=== PATIENT | female | born 1950 | race Hispanic/Latino ===

== ENCOUNTER 2022-07-09 14:25 | Emergency (ER) | payer MEDICARE ==
[~2022-07-09] VITALS: Ht 152.4 cm; Wt 65.8 kg
[2022-07-09] MEDS ORDERED: SODIUM CHLORIDE 0.9% 1000ML 1,000 ML IV STA (15:08)
[2022-07-09] MEDS ORDERED: ONDANSETRON HCL INJ 2MG/ML 2ML 2 MG/ML VIAL IV STA ×2 (15:08→19:22)
[2022-07-09] MEDS ORDERED: DICYCLOMINE HCL 20 MG/2 ML VIAL IM ONE (15:15)
[2022-07-09 15:38] LABS: BASOPHILS % 0.1 % (0.0-1.0); HEMATOCRIT 38.3 % (34.2-44.1); HEMOGLOBIN 13.1 g/dL (12.0-16.0); LYMPHOCYTES # (AUTO) 0.8 (1.0-3.2); MEAN CORPUSCULAR HEMOGLOBIN 29.7 pg (28-32); MEAN CORPUSCULAR HGB CONC 34.2 g/dL (31-35); MEAN CORPUSCULAR VOLUME 86.8 fL (81-99); MONOCYTES # (AUTO) 0.6 (0.2-0.8); NEUTROPHILS # (AUTO) 9.7 (2.1-6.9); NEUTROPHILS % 87.5 % (38.7-80.0); PLATELET COUNT 329 x10e3/uL (140-360); RED BLOOD COUNT 4.41 x10e6/uL (3.6-5.1)
[2022-07-09 15:44] LABS: INR 0.98; PROTHROMBIN TIME 13.2 seconds (11.9-14.5)
[2022-07-09 15:45] LABS: PARTIAL THROMBOPLASTIN TIME 29.1 seconds (23.8-35.5)
[2022-07-09 15:54] LABS: ALANINE AMINOTRANSFERASE 22 IU/L (0-55); ALBUMIN 3.8 g/dL (3.5-5.0); ALBUMIN/GLOBULIN RATIO 0.9 (0.8-2.0); ALKALINE PHOSPHATASE 51 IU/L (40-150); ANION GAP 16.6 mmol/L (8-16); BLOOD UREA NITROGEN 10 mg/dL (7-26); BUN/CREATININE RATIO 13 (6-25); CALCIUM 9.1 mg/dL (8.4-10.2); CARBON DIOXIDE 23 mmol/L (22-29); CHLORIDE 95 mmol/L (98-107); CREATINE KINASE 291 IU/L (29-168); CREATININE, SERUM 0.79 mg/dL (0.57-1.11); GLUCOSE 116 mg/dL (74-118); LIPASE 23 U/L (8-78); POTASSIUM 3.6 mmol/L (3.5-5.1); SODIUM 131 mmol/L (136-145)
[2022-07-09] MEDS ORDERED: IOPAMIDOL 370 MG/ML 100 ML INFUS..BTL INJ ONE (16:28)
[2022-07-09] MEDS ORDERED: METRONIDAZOLE500 MG PO (19:06)
[2022-07-09] MEDS ORDERED: ONDANSETRON ODT4 MG PO (19:06)
[2022-07-09] MEDS ORDERED: DICYCLOMINE HCL20 MG PO (19:06)
[2022-07-09] MEDS ORDERED: CEFDINIR300 MG PO (19:06)
[2022-07-09 19:07] LABS: CLARITY,URINE SL CLOUDY (CLEAR); COLOR,URINE YELLOW (YELLOW); KETONES,URINE 1+ (NEGATIVE); LEUKOCYTE ESTERASE ,URINE NEGATIVE (NEGATIVE); NITRITE,URINE NEGATIVE (NEGATIVE); PROTEIN,URINE DIPSTICK NEGATIVE (NEGATIVE); URINE UROBILINOGEN 0.2 mg/dL (0.2 - 1)
[2022-07-09 19:20] LABS: BACTERIA,URINE MODERATE /HPF; EPITHELIAL CELLS,URINE MODERATE /LPF; WBC,URINE (MAN) 0-5 /HPF (0-5)
[2022-07-09] MEDS ORDERED: KETOROLAC TROMETHAMINE 30 MG/ML VIAL IV STA (19:22)
[2022-07-09] MEDS ORDERED: Morphine 4mg INJECTION 4 MG/ML INJ IV STA (19:22)
[2022-07-09] MEDS ORDERED: SODIUM CHLORIDE 0.9% 500ML 500 ML IV ONE (19:30)
[2022-07-09] MEDS ORDERED: ACETAMINOPHEN 325 MG TAB PO ONE (19:30)
[2022-07-09] MEDS ORDERED: KETOROLAC TROMETHAMINE 30 MG/ML VIAL ONE (19:43)
[2022-07-09] MEDS ORDERED: ONDANSETRON HCL INJ 2MG/ML 2ML 2 MG/ML VIAL ONE (19:43)
[2022-07-09] MEDS ORDERED: Morphine 2mg Syringe 2 MG/ML SYR ONE (19:43)
[2022-07-09] MEDS ORDERED: ACETAMINOPHEN 325 MG TAB ONE (19:44)
[2022-07-09 20:50] VITALS: BP 109/58
== END 2022-07-09 20:59 | disposition home or self-care (01) ==
LOC: ER 14:47
DX: R50.9 Fever, unspecified (principal); U07.1 COVID-19; K57.32 Diverticulitis of large intestine without perforation or abscess without bleeding; R10.30 Lower abdominal pain, unspecified; R11.2 Nausea with vomiting, unspecified; K76.89 Other specified diseases of liver; N28.1 Cyst of kidney, acquired; K44.9 Diaphragmatic hernia without obstruction or gangrene
CPT/HCPCS: 0223U; 36415; 74177; 80053; 81001; 82550; 82553; 83690; 83735; 84484; 85025; 85610; 85730; 87086; 99284; C9113; J0500; J1885; J2270; J2405; J7030; J7040; Q9967

== ENCOUNTER 2022-07-13 10:05 | Inpatient (IN) | payer MEDICARE ==
[~2022-07-13] VITALS: Ht 152.4 cm; Wt 65.8 kg
[~2022-07-13 10:05] MED LIST: CEFDINIR300 MG PO; DICYCLOMINE HCL20 MG PO; METRONIDAZOLE500 MG PO; ONDANSETRON ODT4 MG PO
[2022-07-13] MEDS ORDERED: Morphine 4mg INJECTION 4 MG/ML INJ IV STA (10:21)
[2022-07-13] MEDS ORDERED: SODIUM CHLORIDE 0.9% 1000ML 1,000 ML IV STA (10:21)
[2022-07-13] MEDS ORDERED: ONDANSETRON HCL INJ 2MG/ML 2ML 2 MG/ML VIAL IV STA (10:21)
[2022-07-13 10:56] LABS: BASOPHILS % 0.1 % (0.0-1.0); EOSINOPHILS % 0.1 % (0.0-6.0); HEMATOCRIT 36.8 % (34.2-44.1); HEMOGLOBIN 12.3 g/dL (12.0-16.0); LYMPHOCYTES # (AUTO) 0.6 (1.0-3.2); LYMPHOCYTES % 8.1 % (18.0-39.1); MEAN CORPUSCULAR HEMOGLOBIN 29.3 pg (28-32); MEAN CORPUSCULAR HGB CONC 33.4 g/dL (31-35); MEAN CORPUSCULAR VOLUME 87.6 fL (81-99); MONOCYTES # (AUTO) 0.5 (0.2-0.8); MONOCYTES % 5.8 % (4.4-11.3); NEUTROPHILS # (AUTO) 6.6 (2.1-6.9); NEUTROPHILS % 85.3 % (38.7-80.0); PLATELET COUNT 425 x10e3/uL (140-360); RED CELL DISTRIBUTION WIDTH 13.2 % (11.7-14.4)
[2022-07-13] MEDS: METRONIDAZOLE 500MG/NS 100ML 100 ML IV SCH ×3 (11:09→22:03)
[2022-07-13 11:17] LABS: ALANINE AMINOTRANSFERASE 18 IU/L (0-55); ALBUMIN 3.1 g/dL (3.5-5.0); ALBUMIN/GLOBULIN RATIO 0.8 (0.8-2.0); ALKALINE PHOSPHATASE 53 IU/L (40-150); ANION GAP 14.9 mmol/L (8-16); BLOOD UREA NITROGEN 14 mg/dL (7-26); BUN/CREATININE RATIO 19 (6-25); CALCIUM 8.6 mg/dL (8.4-10.2); CARBON DIOXIDE 24 mmol/L (22-29); CHLORIDE 101 mmol/L (98-107); CREATINE KINASE 52 IU/L (29-168); CREATININE, SERUM 0.75 mg/dL (0.57-1.11); GLUCOSE 112 mg/dL (74-118); LIPASE 24 U/L (8-78); MAGNESIUM 2.2 MG/DL (1.3-2.1); SODIUM 137 mmol/L (136-145)
[2022-07-13 11:25] LABS: INR 1.05; PROTHROMBIN TIME 14.2 seconds (11.9-14.5)
[2022-07-13 11:26] LABS: PARTIAL THROMBOPLASTIN TIME 32.7 seconds (23.8-35.5)
[2022-07-13 11:31] LABS: POTASSIUM 2.9 mmol/L (3.5-5.1)
[2022-07-13] MEDS ORDERED: Morphine 4mg INJECTION 4 MG/ML INJ IV PRN (11:45)
[2022-07-13] MEDS ORDERED: ONDANSETRON HCL INJ 2MG/ML 2ML 2 MG/ML VIAL IV PRN (11:45)
[2022-07-13] MEDS ORDERED: KCL 20MEQ/.9 SOD CHL 1,000 ML IV ONE (12:00)
[2022-07-13 12:50] LABS: BACTERIA,URINE FEW /HPF; CLARITY,URINE CLEAR (CLEAR); COLOR,URINE YELLOW (YELLOW); EPITHELIAL CELLS,URINE MODERATE /LPF; KETONES,URINE 2+ (NEGATIVE); LEUKOCYTE ESTERASE ,URINE NEGATIVE (NEGATIVE); NITRITE,URINE NEGATIVE (NEGATIVE); PROTEIN,URINE DIPSTICK NEGATIVE (NEGATIVE); RBC,URINE 0-5 /HPF (0-5); URINE UROBILINOGEN 0.2 mg/dL (0.2 - 1)
[2022-07-13] MEDS: POTASSIUM CHLORIDE 10MEQ/100ML 100 ML IV SCH ×3 (13:25→15:26)
[2022-07-13 14:38] VITALS: BP 144/62
[2022-07-13] MEDS ORDERED: ALBUTEROL/IPRATROPIUM 3 ML NEB NEB PRN (15:00)
[2022-07-13] MEDS ORDERED: ACETAMINOPHEN 325 MG TAB PO PRN (15:00)
[2022-07-13] MEDS ORDERED: DOCUSATE SODIUM 100 MG CAP PO PRN (15:00)
[2022-07-13] MEDS ORDERED: POTASSIUM CHLORIDE 20 MEQ TAB CR PO PRN (15:00)
[2022-07-13] MEDS ORDERED: BENZONATATE 100 MG CAP PO PRN (15:00)
[2022-07-13] MEDS ORDERED: MELATONIN 5 MG TABLET PO PRN (15:00)
[2022-07-13] MEDS ORDERED: HYDRALAZINE HCL 20 MG/ML VIAL IV PRN (15:00)
[2022-07-13] MEDS ORDERED: DEXTROSE 50% SYRINGE 50 ML IV PRN (15:00)
[2022-07-13] MEDS ORDERED: DIPHENHYDRAMINE HCL 25 MG CAP PO PRN (15:00)
[2022-07-13] MEDS ORDERED: D5NS/KCL 20MEQ 1,000 ML IV SCH (15:00)
[2022-07-13] MEDS ORDERED: LIDOCAINE 4% PATCH TP PRN (15:00)
[2022-07-13] MEDS ORDERED: SIMETHICONE 80 MG CHEW PO PRN (15:00)
[2022-07-13 15:01] VITALS: BP 144/62
[2022-07-13] MEDS ORDERED: IPRATROPIUM BROMIDE 0.02% 2.5 ML NEB NEB PRN (15:15)
[2022-07-13] MEDS ORDERED: ALBUTEROL SULF 0.083% NEB SOLN 3 ML NEB NEB PRN (15:15)
[2022-07-13] MEDS ORDERED: SODIUM CHLORIDE 0.9% 1000ML 1,000 ML ONE (15:35)
[2022-07-13 16:00] VITALS: BP 135/63
[2022-07-13] MEDS: ENOXAPARIN SOD INJ 40 MG/0.4 ML SYR SC SCH (17:18)
[2022-07-13] MEDS ORDERED: POTASSIUM CHLORIDE 10MEQ/100ML 100 ML IV SCH (17:20)
[2022-07-13] MEDS ORDERED: IOPAMIDOL 370 MG/ML 100 ML INFUS..BTL INJ ONE (17:31)
[2022-07-13 20:38] VITALS: BP 124/66
[2022-07-13 21:00] VITALS: BP 124/66
[2022-07-13] MEDS: D5NS/KCL 20MEQ 1,000 ML IV SCH (22:02)
[2022-07-13] MEDS: Morphine 2mg Syringe 2 MG/ML SYR IV PRN (22:04)
[2022-07-13] MEDS: ONDANSETRON HCL INJ 2MG/ML 2ML 2 MG/ML VIAL IV PRN (22:05)
[2022-07-13 23:47] VITALS: BP 136/60
[2022-07-14] VITALS (7 sets, daily range): BP systolic 117–133; BP diastolic 58–78
[2022-07-14 05:46] LABS: BASOPHILS % 0.2 % (0.0-1.0); HEMATOCRIT 32.7 % (34.2-44.1); HEMOGLOBIN 10.8 g/dL (12.0-16.0); LYMPHOCYTES # (AUTO) 1.1 (1.0-3.2); LYMPHOCYTES % 7.7 % (18.0-39.1); MEAN CORPUSCULAR HEMOGLOBIN 29.3 pg (28-32); MEAN CORPUSCULAR VOLUME 88.6 fL (81-99); MONOCYTES # (AUTO) 1.2 (0.2-0.8); MONOCYTES % 7.9 % (4.4-11.3); NEUTROPHILS # (AUTO) 12.1 (2.1-6.9); NEUTROPHILS % 83.2 % (38.7-80.0); PLATELET COUNT 446 x10e3/uL (140-360); RED BLOOD COUNT 3.69 x10e6/uL (3.6-5.1); RED CELL DISTRIBUTION WIDTH 13.5 % (11.7-14.4)
[2022-07-14] MEDS: D5NS/KCL 20MEQ 1,000 ML IV SCH ×2 (05:57→17:24)
[2022-07-14] MEDS: METRONIDAZOLE 500MG/NS 100ML 100 ML IV SCH ×3 (05:59→16:15)
[2022-07-14 06:22] LABS: ALBUMIN 2.1 g/dL (3.5-5.0); ALBUMIN/GLOBULIN RATIO 0.6 (0.8-2.0); ANION GAP 12.1 mmol/L (8-16); CREATININE, SERUM 0.62 mg/dL (0.57-1.11); POTASSIUM 3.1 mmol/L (3.5-5.1)
[2022-07-14 06:23] LABS: CHOL/HDL RATIO 3.3 (3.0-3.6); MAGNESIUM 2.1 MG/DL (1.3-2.1)
[2022-07-14 06:32] LABS: THYROID STIMULATING HORMONE 1.406 uIU/mL (0.350-4.940)
[2022-07-14] MEDS: PANTOPRAZOLE SOD 40 MG TABEC PO SCH (07:30)
[2022-07-14] MEDS: Morphine 2mg Syringe 2 MG/ML SYR IV PRN ×4 (08:22→23:29)
[2022-07-14] MEDS ORDERED: SODIUM CHLORIDE 0.9% 500ML 500 ML ONE (11:29)
[2022-07-14] MEDS: POTASSIUM CHLORIDE 20MEQ/100ML 100 ML IV SCH ×3 (11:50→17:14)
[2022-07-14] MEDS ORDERED: POTASSIUM PHOSPHATE 15 MM in SODIUM CHLORIDE 0.9% 250ML 250 ML IV ONE (15:30)
[2022-07-14] MEDS: ENOXAPARIN SOD INJ 40 MG/0.4 ML SYR SC SCH (16:16)
[2022-07-14] MEDS ORDERED: SODIUM CHLORIDE 0.9% 250ML 250 ML ONE (17:45)
[2022-07-15] VITALS (8 sets, daily range): BP systolic 126–179; BP diastolic 67–75
[2022-07-15] MEDS: METRONIDAZOLE 500MG/NS 100ML 100 ML IV SCH ×5 (00:23→23:40)
[2022-07-15] MEDS: D5NS/KCL 20MEQ 1,000 ML IV SCH ×2 (02:00→14:00)
[2022-07-15 05:14] LABS: BASOPHILS # (AUTO) 0.1 (0.0-0.1); BASOPHILS % 0.4 % (0.0-1.0); EOSINOPHILS % 0.2 % (0.0-6.0); HEMATOCRIT 30.9 % (34.2-44.1); HEMOGLOBIN 10.2 g/dL (12.0-16.0); LYMPHOCYTES # (AUTO) 1.5 (1.0-3.2); LYMPHOCYTES % 9.2 % (18.0-39.1); MEAN CORPUSCULAR HEMOGLOBIN 29.5 pg (28-32); MEAN CORPUSCULAR VOLUME 89.3 fL (81-99); MONOCYTES # (AUTO) 1.5 (0.2-0.8); MONOCYTES % 8.9 % (4.4-11.3); NEUTROPHILS # (AUTO) 12.6 (2.1-6.9); NEUTROPHILS % 75.6 % (38.7-80.0); PLATELET COUNT 482 x10e3/uL (140-360); RED BLOOD COUNT 3.46 x10e6/uL (3.6-5.1); RED CELL DISTRIBUTION WIDTH 13.9 % (11.7-14.4)
[2022-07-15 05:29] LABS: ANION GAP 10.8 mmol/L (8-16); CREATININE, SERUM 0.56 mg/dL (0.57-1.11); POTASSIUM 3.8 mmol/L (3.5-5.1)
[2022-07-15] MEDS: Morphine 2mg Syringe 2 MG/ML SYR IV PRN ×5 (05:50→23:40)
[2022-07-15] MEDS: PANTOPRAZOLE SOD 40 MG TABEC PO SCH (07:30)
[2022-07-15] MEDS: ONDANSETRON HCL INJ 2MG/ML 2ML 2 MG/ML VIAL IV PRN (10:17)
[2022-07-15] MEDS: ENOXAPARIN SOD INJ 40 MG/0.4 ML SYR SC SCH (17:17)
[2022-07-16] VITALS (8 sets, daily range): BP systolic 147–165; BP diastolic 74–95
[2022-07-16] MEDS ORDERED: METHYLPREDNISOLONE SOD SUCC 40 MG/ML VIAL 1ML IV ONE (04:45)
[2022-07-16] MEDS: METRONIDAZOLE 500MG/NS 100ML 100 ML IV SCH ×3 (05:00→20:21)
[2022-07-16 05:37] LABS: BASOPHILS # (AUTO) 0.1 (0.0-0.1); BASOPHILS % 0.7 % (0.0-1.0); EOSINOPHILS # (AUTO) 0.1 (0.0-0.4); EOSINOPHILS % 0.7 % (0.0-6.0); HEMOGLOBIN 10.4 g/dL (12.0-16.0); LYMPHOCYTES # (AUTO) 1.4 (1.0-3.2); LYMPHOCYTES % 10.4 % (18.0-39.1); MEAN CORPUSCULAR HEMOGLOBIN 29.2 pg (28-32); MEAN CORPUSCULAR HGB CONC 32.5 g/dL (31-35); MEAN CORPUSCULAR VOLUME 89.9 fL (81-99); MONOCYTES # (AUTO) 1.1 (0.2-0.8); MONOCYTES % 8.3 % (4.4-11.3); NEUTROPHILS # (AUTO) 9.8 (2.1-6.9); NEUTROPHILS % 72.6 % (38.7-80.0); PLATELET COUNT 608 x10e3/uL (140-360); RED BLOOD COUNT 3.56 x10e6/uL (3.6-5.1); RED CELL DISTRIBUTION WIDTH 13.7 % (11.7-14.4)
[2022-07-16 06:04] LABS: ANION GAP 13.5 mmol/L (8-16); CALCIUM 8.2 mg/dL (8.4-10.2); CREATININE, SERUM 0.53 mg/dL (0.57-1.11); POTASSIUM 3.5 mmol/L (3.5-5.1)
[2022-07-16 07:28] LABS: EOSINOPHILS % (MANUAL) 3 % (0-7); LYMPHOCYTES % (MANUAL) 11 % (19-48); MONOCYTES % (MANUAL) 5 % (3.4-9.0); NEUTROPHILS % (MANUAL) 79 % (40-74); PLATELET ESTIMATE MODERATELY INCREASED; PLATELET MORPHOLOGY COMMENT NORMAL; RBC MORPHOLOGY COMMENT NORMAL
[2022-07-16] MEDS: FAMOTIDINE 20 MG/2 ML VIAL IV SCH ×2 (08:19→17:14)
[2022-07-16] MEDS: PANTOPRAZOLE SOD 40 MG TABEC PO SCH (08:19)
[2022-07-16] MEDS: ONDANSETRON HCL INJ 2MG/ML 2ML 2 MG/ML VIAL IV PRN (10:46)
[2022-07-16] MEDS: Morphine 2mg Syringe 2 MG/ML SYR IV PRN (10:46)
[2022-07-16] MEDS: ENOXAPARIN SOD INJ 40 MG/0.4 ML SYR SC SCH (17:14)
[2022-07-16] MEDS: CARVEDILOL 3.125 MG TAB PO SCH (17:15)
[2022-07-17 01:03] VITALS: BP 155/89
[2022-07-17] MEDS: METRONIDAZOLE 500MG/NS 100ML 100 ML IV SCH ×3 (02:32→14:46)
[2022-07-17 05:22] VITALS: BP 126/85
[2022-07-17 08:28] VITALS: BP 142/74
[2022-07-17] MEDS: FAMOTIDINE 20 MG/2 ML VIAL IV SCH (08:43)
[2022-07-17] MEDS: PANTOPRAZOLE SOD 40 MG TABEC PO SCH (08:43)
[2022-07-17] MEDS: CARVEDILOL 3.125 MG TAB PO SCH (08:44)
[2022-07-17 08:57] VITALS: BP 142/74
[2022-07-17 12:25] VITALS: BP 160/79
[2022-07-17 15:28] VITALS: BP 151/71
[2022-07-17] MEDS ORDERED: ONDANSETRON HCL 4 MG ORAL DISINTEGRATING TAB PO PRN (16:00)
[2022-07-17] MEDS ORDERED: FAMOTIDINE 20 MG TAB PO SCH (16:30)
[2022-07-17] MEDS ORDERED: METRONIDAZOLE 500 MG TAB PO SCH (20:00)
== END 2022-07-17 16:12 | disposition home or self-care (01) | DRG 371 ==
LOC: ER 10:08 → ERHOLD 11:48 → MED/SURG2 14:22
PROVIDERS: ADMIT Internal Medicine; ATTEND Internal Medicine
PROC: 02HV33Z Insertion of Infusion Device into Superior Vena Cava, Percutaneous Approach (ICD-10-PCS; principal; 2022-07-15)
PROC: 8E0ZXY6 Isolation (ICD-10-PCS; 2022-07-15)
DX: K65.1 Peritoneal abscess (principal); U07.1 COVID-19; K57.92 Diverticulitis of intestine, part unspecified, without perforation or abscess without bleeding; E87.6 Hypokalemia; K44.9 Diaphragmatic hernia without obstruction or gangrene; L25.9 Unspecified contact dermatitis, unspecified cause; E66.9 Obesity, unspecified; Z88.0 Allergy status to penicillin; Z68.28 Body mass index [BMI] 28.0-28.9, adult
CPT/HCPCS: 0223U; 36415; 36569; 71045; 74177; 74470; 80048; 80053; 80061; 81001; 82550; 82553; 83036; 83605; 83690; 83735; 84100; 84443; 84484; 85025; 85610; 85730; 87040; 94799; 99252; 99284; J0696; J1650; J2270; J2405; J2920; J3480; J7030; J7040; J7050; Q9967

== ENCOUNTER 2022-07-21 15:42 | Inpatient (IN) | payer MEDICARE ==
[~2022-07-21] VITALS: Ht 152.4 cm; Wt 63.5 kg
[2022-07-21] MEDS: POTASSIUM CHLORIDE 20MEQ/100ML 100 ML IV SCH ×2 (04:00→20:30)
[2022-07-21] MEDS ORDERED: SODIUM CHLORIDE 0.9% 1000ML 1,970 ML IV SCH (16:15)
[2022-07-21 16:20] LABS: BASOPHILS % 0.2 % (0.0-1.0); EOSINOPHILS # (AUTO) 0.2 (0.0-0.4); EOSINOPHILS % 0.9 % (0.0-6.0); HEMATOCRIT 32.3 % (34.2-44.1); HEMOGLOBIN 10.6 g/dL (12.0-16.0); LYMPHOCYTES # (AUTO) 1.4 (1.0-3.2); LYMPHOCYTES % 8.5 % (18.0-39.1); MEAN CORPUSCULAR HEMOGLOBIN 28.7 pg (28-32); MEAN CORPUSCULAR HGB CONC 32.8 g/dL (31-35); MEAN CORPUSCULAR VOLUME 87.5 fL (81-99); MONOCYTES # (AUTO) 1.5 (0.2-0.8); MONOCYTES % 9.2 % (4.4-11.3); NEUTROPHILS # (AUTO) 13.3 (2.1-6.9); PLATELET COUNT 936 x10e3/uL (140-360); RED BLOOD COUNT 3.69 x10e6/uL (3.6-5.1); RED CELL DISTRIBUTION WIDTH 13.5 % (11.7-14.4)
[2022-07-21 16:29] LABS: CLARITY,URINE SL CLOUDY (CLEAR); COLOR,URINE YELLOW (YELLOW); INR 1.18; KETONES,URINE 1+ (NEGATIVE); LEUKOCYTE ESTERASE ,URINE NEGATIVE (NEGATIVE); NITRITE,URINE NEGATIVE (NEGATIVE); PROTEIN,URINE DIPSTICK NEGATIVE (NEGATIVE); PROTHROMBIN TIME 15.5 seconds (11.9-14.5); URINE UROBILINOGEN 0.2 mg/dL (0.2 - 1)
[2022-07-21 16:30] LABS: PARTIAL THROMBOPLASTIN TIME 34.4 seconds (23.8-35.5)
[2022-07-21 16:39] LABS: ALBUMIN 2.3 g/dL (3.5-5.0); ALBUMIN/GLOBULIN RATIO 0.5 (0.8-2.0); ANION GAP 17.8 mmol/L (8-16); CALCIUM 8.7 mg/dL (8.4-10.2); CREATININE, SERUM 0.59 mg/dL (0.57-1.11)
[2022-07-21 16:40] LABS: POTASSIUM 2.8 mmol/L (3.5-5.1)
[2022-07-21 16:44] LABS: BACTERIA,URINE FEW /HPF; EPITHELIAL CELLS,URINE MODERATE /LPF; RENAL EPITHELIAL CELLS,URINE FEW; WBC,URINE (MAN) 0-5 /HPF (0-5)
[2022-07-21] MEDS ORDERED: IOPAMIDOL 370 MG/ML 100 ML INFUS..BTL INJ ONE (16:57)
[2022-07-21] MEDS ORDERED: MEROPENEM 1 GM in SODIUM CHLORIDE 0.9% 100 ML IV STA (18:00)
[2022-07-21] MEDS: SODIUM CHLORIDE 0.9% 1000ML 1,000 ML IV SCH ×2 (18:15→19:31)
[2022-07-21] MEDS ORDERED: Morphine 4mg INJECTION 4 MG/ML INJ IV PRN (18:15)
[2022-07-21] MEDS ORDERED: ONDANSETRON HCL INJ 2MG/ML 2ML 2 MG/ML VIAL IV PRN (18:15)
[2022-07-21 20:00] VITALS: BP 139/74
[2022-07-21 20:30] VITALS: BP 139/74
[2022-07-22] VITALS (7 sets, daily range): BP systolic 127–163; BP diastolic 64–81
[2022-07-22] MEDS ORDERED: HYDRALAZINE HCL 20 MG/ML VIAL IV PRN (00:30)
[2022-07-22] MEDS ORDERED: POLYETHYLENE GLYCOL 3350 17 GM PACK PO PRN (00:30)
[2022-07-22] MEDS ORDERED: BENZONATATE 100 MG CAP PO PRN (00:30)
[2022-07-22] MEDS ORDERED: ACETAMINOPHEN 325 MG TAB PO PRN (00:30)
[2022-07-22] MEDS ORDERED: DEXTROSE 50% SYRINGE 50 ML IV PRN (00:30)
[2022-07-22] MEDS ORDERED: DOCUSATE SODIUM 100 MG CAP PO PRN (00:30)
[2022-07-22] MEDS ORDERED: ALBUTEROL/IPRATROPIUM 3 ML NEB NEB PRN (00:30)
[2022-07-22] MEDS ORDERED: DIPHENHYDRAMINE HCL 25 MG CAP PO PRN (00:30)
[2022-07-22] MEDS ORDERED: LIDOCAINE 4% PATCH TP PRN (00:30)
[2022-07-22] MEDS ORDERED: SIMETHICONE 80 MG CHEW PO PRN (00:30)
[2022-07-22] MEDS ORDERED: HYDROCODONE/APAP 5MG-325MG TAB PO PRN (00:30)
[2022-07-22] MEDS ORDERED: MELATONIN 5 MG TABLET PO PRN (00:30)
[2022-07-22] MEDS: POTASSIUM CHLORIDE 20MEQ/100ML 100 ML IV SCH (01:12)
[2022-07-22] MEDS: SODIUM CHLORIDE 0.9% 1000ML 1,000 ML IV SCH ×3 (04:11→21:29)
[2022-07-22 07:21] LABS: BASOPHILS # (AUTO) 0.1 (0.0-0.1); BASOPHILS % 0.4 % (0.0-1.0); EOSINOPHILS # (AUTO) 0.2 (0.0-0.4); EOSINOPHILS % 1.3 % (0.0-6.0); HEMATOCRIT 27.4 % (34.2-44.1); HEMOGLOBIN 8.9 g/dL (12.0-16.0); LYMPHOCYTES # (AUTO) 1.1 (1.0-3.2); LYMPHOCYTES % 8.1 % (18.0-39.1); MEAN CORPUSCULAR HEMOGLOBIN 29.2 pg (28-32); MEAN CORPUSCULAR HGB CONC 32.5 g/dL (31-35); MEAN CORPUSCULAR VOLUME 89.8 fL (81-99); MONOCYTES # (AUTO) 1.2 (0.2-0.8); MONOCYTES % 9.1 % (4.4-11.3); NEUTROPHILS # (AUTO) 10.8 (2.1-6.9); NEUTROPHILS % 79.9 % (38.7-80.0); PLATELET COUNT 857 x10e3/uL (140-360); RED BLOOD COUNT 3.05 x10e6/uL (3.6-5.1); RED CELL DISTRIBUTION WIDTH 13.7 % (11.7-14.4)
[2022-07-22] MEDS: PANTOPRAZOLE SOD 40 MG TABEC PO SCH (07:30)
[2022-07-22 07:47] LABS: ALBUMIN 1.8 g/dL (3.5-5.0); ALBUMIN/GLOBULIN RATIO 0.5 (0.8-2.0); ANION GAP 13.4 mmol/L (8-16); CALCIUM 7.9 mg/dL (8.4-10.2); CREATININE, SERUM 0.49 mg/dL (0.57-1.11); POTASSIUM 3.4 mmol/L (3.5-5.1)
[2022-07-22] MEDS ORDERED: FUROSEMIDE INJ 10 MG/ML 4 ML VIAL IV ONE (17:00)
[2022-07-22] MEDS: LISINOPRIL 10 MG TAB PO SCH (17:42)
[2022-07-22] MEDS: METOPROLOL TARTRATE 25 MG TAB PO SCH (17:43)
[2022-07-22] MEDS: ENOXAPARIN SOD INJ 40 MG/0.4 ML SYR SC SCH (17:43)
[2022-07-22] MEDS: POTASSIUM CHLORIDE 20 MEQ TAB CR PO PRN (17:49)
[2022-07-22] MEDS: FLUCONAZOLE 200 MG/100 ML 100 ML IV SCH (21:30)
[2022-07-23] VITALS (8 sets, daily range): BP systolic 134–172; BP diastolic 64–83
[2022-07-23 06:57] LABS: BASOPHILS # (AUTO) 0.1 (0.0-0.1); BASOPHILS % 0.6 % (0.0-1.0); EOSINOPHILS # (AUTO) 0.2 (0.0-0.4); EOSINOPHILS % 1.4 % (0.0-6.0); HEMATOCRIT 26.9 % (34.2-44.1); HEMOGLOBIN 8.7 g/dL (12.0-16.0); LYMPHOCYTES # (AUTO) 1.3 (1.0-3.2); LYMPHOCYTES % 10.6 % (18.0-39.1); MEAN CORPUSCULAR HGB CONC 32.3 g/dL (31-35); MEAN CORPUSCULAR VOLUME 92.8 fL (81-99); MONOCYTES # (AUTO) 1.3 (0.2-0.8); MONOCYTES % 10.1 % (4.4-11.3); NEUTROPHILS # (AUTO) 9.6 (2.1-6.9); NEUTROPHILS % 76.2 % (38.7-80.0); PLATELET COUNT 775 x10e3/uL (140-360); RED CELL DISTRIBUTION WIDTH 14.3 % (11.7-14.4)
[2022-07-23 07:36] LABS: ANION GAP 17.1 mmol/L (8-16); CALCIUM 8.1 mg/dL (8.4-10.2); CREATININE, SERUM 0.49 mg/dL (0.57-1.11); MAGNESIUM 1.9 MG/DL (1.3-2.1); PHOSPHORUS 2.1 MG/DL (2.3-4.7); POTASSIUM 3.1 mmol/L (3.5-5.1)
[2022-07-23] MEDS: PANTOPRAZOLE SOD 40 MG TABEC PO SCH (09:40)
[2022-07-23] MEDS: METOPROLOL TARTRATE 25 MG TAB PO SCH ×2 (09:40→17:12)
[2022-07-23] MEDS: LISINOPRIL 10 MG TAB PO SCH ×2 (09:40→17:12)
[2022-07-23 14:23] LABS: BODY FLUID APPEARANCE CLOUDY; BODY FLUID COLOR STRAW; BODY FLUID TYPE PLEURAL
[2022-07-23] MEDS ORDERED: ONDANSETRON HCL 4 MG ORAL DISINTEGRATING TAB PO PRN (14:30)
[2022-07-23 14:47] LABS: RBC,BODY FLUID 1534 cells/uL; WBC,BODY FLUID 471 cells/uL
[2022-07-23] MEDS ORDERED: POTASSIUM CHLORIDE 20 MEQ TAB CR PO ONE (16:00)
[2022-07-23] MEDS: MEROPENEM 1 GM in SODIUM CHLORIDE 0.9% 100 ML IV SCH (17:09)
[2022-07-23] MEDS: ENOXAPARIN SOD INJ 40 MG/0.4 ML SYR SC SCH (17:09)
[2022-07-23] MEDS: PHOSPHORUS 250 MG TAB PO SCH (17:10)
[2022-07-23] MEDS: FLUCONAZOLE 200 MG/100 ML 100 ML IV SCH (17:11)
[2022-07-23 17:59] LABS: LYMPHOCYTES,BODY FLUID 8 %; MONO/MACROPHG,BODY FLUID 39 %; NEUTROPHILS,BODY FLUID 53 %
[2022-07-24] VITALS (8 sets, daily range): BP systolic 136–163; BP diastolic 67–95
[2022-07-24] MEDS: MEROPENEM 1 GM in SODIUM CHLORIDE 0.9% 100 ML IV SCH ×3 (01:50→16:20)
[2022-07-24 07:47] LABS: BASOPHILS # (AUTO) 0.1 (0.0-0.1); BASOPHILS % 0.8 % (0.0-1.0); EOSINOPHILS # (AUTO) 0.1 (0.0-0.4); EOSINOPHILS % 1.6 % (0.0-6.0); HEMATOCRIT 28.3 % (34.2-44.1); HEMOGLOBIN 9.1 g/dL (12.0-16.0); LYMPHOCYTES # (AUTO) 1.1 (1.0-3.2); LYMPHOCYTES % 12.3 % (18.0-39.1); MEAN CORPUSCULAR HEMOGLOBIN 28.8 pg (28-32); MEAN CORPUSCULAR HGB CONC 32.2 g/dL (31-35); MEAN CORPUSCULAR VOLUME 89.6 fL (81-99); MONOCYTES # (AUTO) 0.9 (0.2-0.8); MONOCYTES % 9.7 % (4.4-11.3); NEUTROPHILS # (AUTO) 6.6 (2.1-6.9); NEUTROPHILS % 74.9 % (38.7-80.0); PLATELET COUNT 905 x10e3/uL (140-360); RED BLOOD COUNT 3.16 x10e6/uL (3.6-5.1); RED CELL DISTRIBUTION WIDTH 13.6 % (11.7-14.4)
[2022-07-24 08:07] LABS: ANION GAP 14.2 mmol/L (8-16); CALCIUM 7.9 mg/dL (8.4-10.2); CREATININE, SERUM 0.47 mg/dL (0.57-1.11); POTASSIUM 3.2 mmol/L (3.5-5.1)
[2022-07-24] MEDS ORDERED: SODIUM CHLORIDE 0.9% 250ML 0 ML ONE (09:56)
[2022-07-24] MEDS ORDERED: FENTANYL CITRATE/PF 100MCG/2 ML INJ ONE (09:56)
[2022-07-24] MEDS: PANTOPRAZOLE SOD 40 MG TABEC PO SCH (10:16)
[2022-07-24] MEDS: PHOSPHORUS 250 MG TAB PO SCH ×2 (10:16→16:21)
[2022-07-24] MEDS: METOPROLOL TARTRATE 25 MG TAB PO SCH (10:17)
[2022-07-24] MEDS: LISINOPRIL 10 MG TAB PO SCH (10:18)
[2022-07-24] MEDS: POTASSIUM CHLORIDE 20 MEQ TAB CR PO PRN (13:44)
[2022-07-24] MEDS ORDERED: ALTEPLASE RECOMBINANT 2 MG/2 ML VIAL IV ONE (14:00)
[2022-07-24] MEDS ORDERED: ALTEPLASE RECOMBINANT 2 MG/2 ML VIAL IV PRN (14:15)
[2022-07-24] MEDS: FLUCONAZOLE 200 MG/100 ML 100 ML IV SCH (16:20)
[2022-07-24] MEDS: ENOXAPARIN SOD INJ 40 MG/0.4 ML SYR SC SCH (16:21)
[2022-07-24] MEDS: CARVEDILOL 12.5 MG TAB PO SCH (16:21)
[2022-07-25 00:58] VITALS: BP 133/67
[2022-07-25 05:03] VITALS: BP 150/80
[2022-07-25 07:58] VITALS: BP 146/71
[2022-07-25 08:00] LABS: BASOPHILS # (AUTO) 0.1 (0.0-0.1); BASOPHILS % 1.1 % (0.0-1.0); EOSINOPHILS # (AUTO) 0.2 (0.0-0.4); HEMATOCRIT 27.4 % (34.2-44.1); HEMOGLOBIN 8.8 g/dL (12.0-16.0); LYMPHOCYTES # (AUTO) 1.4 (1.0-3.2); MEAN CORPUSCULAR HEMOGLOBIN 28.9 pg (28-32); MEAN CORPUSCULAR HGB CONC 32.1 g/dL (31-35); MEAN CORPUSCULAR VOLUME 89.8 fL (81-99); MONOCYTES # (AUTO) 0.8 (0.2-0.8); MONOCYTES % 10.4 % (4.4-11.3); NEUTROPHILS # (AUTO) 5.1 (2.1-6.9); NEUTROPHILS % 66.8 % (38.7-80.0); PLATELET COUNT 927 x10e3/uL (140-360); RED BLOOD COUNT 3.05 x10e6/uL (3.6-5.1); RED CELL DISTRIBUTION WIDTH 13.7 % (11.7-14.4)
[2022-07-25 08:22] LABS: ANION GAP 13.5 mmol/L (8-16); BLOOD UREA NITROGEN < 5 mg/dL (7-26); CALCIUM 8.2 mg/dL (8.4-10.2); CARBON DIOXIDE 24 mmol/L (22-29); CHLORIDE 104 mmol/L (98-107); CREATININE, SERUM 0.48 mg/dL (0.57-1.11); GLUCOSE 86 mg/dL (74-118); POTASSIUM 3.5 mmol/L (3.5-5.1); SODIUM 138 mmol/L (136-145)
[2022-07-25 08:30] LABS: BUN/CREATININE RATIO 10 (6-25)
[2022-07-25 09:17] VITALS: BP 146/71
[2022-07-25] MEDS: PANTOPRAZOLE SOD 40 MG TABEC PO SCH (09:32)
[2022-07-25] MEDS: MEROPENEM 1 GM in SODIUM CHLORIDE 0.9% 100 ML IV SCH ×3 (09:32)
[2022-07-25] MEDS: CARVEDILOL 12.5 MG TAB PO SCH ×2 (09:32→16:28)
[2022-07-25 11:43] VITALS: BP 132/64
[2022-07-25] MEDS ORDERED: COREG12.5 MG PO (15:04)
[2022-07-25 15:33] VITALS: BP 141/70
[2022-07-25] MEDS ORDERED: DIFLUCAN100 MG PO (15:41)
[2022-07-25] MEDS: FLUCONAZOLE 200 MG/100 ML 100 ML IV SCH (16:34)
== END 2022-07-25 17:33 | disposition home or self-care (01) | DRG 871 ==
LOC: ER 15:55 → ERHOLD 18:02 → MED/SURG3 20:30
PROVIDERS: ADMIT Internal Medicine; ATTEND Internal Medicine
PROC: 8E0ZXY6 Isolation (ICD-10-PCS; principal; 2022-07-21)
PROC: 0W993ZZ Drainage of Right Pleural Cavity, Percutaneous Approach (ICD-10-PCS; 2022-07-23)
DX: A41.9 Sepsis, unspecified organism (principal); U07.1 COVID-19; K57.80 Diverticulitis of intestine, part unspecified, with perforation and abscess without bleeding; J90 Pleural effusion, not elsewhere classified; I10 Essential (primary) hypertension; R00.0 Tachycardia, unspecified; E87.6 Hypokalemia; E11.9 Type 2 diabetes mellitus without complications; K44.9 Diaphragmatic hernia without obstruction or gangrene; E87.8 Other disorders of electrolyte and fluid balance, not elsewhere classified
CPT/HCPCS: 32555; 36415; 71045; 72192; 74177; 74470; 80048; 80053; 81001; 83605; 83615; 83735; 84100; 84157; 85025; 85610; 85730; 87040; 87070; 87205; 88112; 88300; 88305; 89051; 99284; J1450; J1650; J1940; J2185; J2997; J3480; J7030; J7050; Q9967

== ENCOUNTER → 2022-09-10 | Outpatient (CLI) | payer MEDICARE ==
[~2022-09-10] MED LIST changes: +COREG12.5 MG PO; +DIATRIZOATE MEGL/DIATRIZOA SOD 30 ML BTL PO ONE; +DIFLUCAN100 MG PO; +IOPAMIDOL 370 MG/ML 100 ML INFUS..BTL INJ ONE
[2022-09-10 16:52] LABS: CREATININE, SERUM 0.78 mg/dL (0.57-1.11)
== END ==
LOC: CT 15:59
PROVIDERS: ATTEND Internal Medicine Infectious Disease
DX: K57.80 Diverticulitis of intestine, part unspecified, with perforation and abscess without bleeding (principal)
CPT/HCPCS: 36415; 74177; 82565; 84520; Q9963; Q9967

== ENCOUNTER → 2022-10-23 | Day surgery (SDC) | payer MEDICARE ==
[2022-10-21 09:47] LABS: BASOPHILS # (AUTO) 0.1 (0.0-0.1); BASOPHILS % 1.1 % (0.0-1.0); EOSINOPHILS # (AUTO) 0.2 (0.0-0.4); EOSINOPHILS % 2.1 % (0.0-6.0); HEMATOCRIT 36.9 % (34.2-44.1); HEMOGLOBIN 12.4 g/dL (12.0-16.0); LYMPHOCYTES # (AUTO) 2.3 (1.0-3.2); LYMPHOCYTES % 32.6 % (18.0-39.1); MEAN CORPUSCULAR HEMOGLOBIN 29.2 pg (28-32); MEAN CORPUSCULAR HGB CONC 33.6 g/dL (31-35); MONOCYTES # (AUTO) 0.6 (0.2-0.8); MONOCYTES % 8.2 % (4.4-11.3); NEUTROPHILS # (AUTO) 3.9 (2.1-6.9); NEUTROPHILS % 55.3 % (38.7-80.0); PLATELET COUNT 384 x10e3/uL (140-360); RED BLOOD COUNT 4.24 x10e6/uL (3.6-5.1); RED CELL DISTRIBUTION WIDTH 14.1 % (11.7-14.4)
[~2022-10-23] MED LIST changes: -DIATRIZOATE MEGL/DIATRIZOA SOD 30 ML BTL PO ONE; -IOPAMIDOL 370 MG/ML 100 ML INFUS..BTL INJ ONE; +LACTATED RINGER'S 1,000 ML ONE; +LISINOPRIL-HCT1 EAC1 PO
[2022-10-23 15:23] VITALS: TEMP 97.2
[2022-10-23 15:55] VITALS: BP 136/70; PULSE 91; RESP 17; O2SAT 97
== END | disposition home or self-care (01) ==
LOC: OR 10-21 09:09
PROVIDERS: ATTEND Internal Medicine Gastroenterology
DX: K57.92 Diverticulitis of intestine, part unspecified, without perforation or abscess without bleeding (principal); D12.4 Benign neoplasm of descending colon; K64.8 Other hemorrhoids; Z71.3 Dietary counseling and surveillance; I10 Essential (primary) hypertension; Z88.1 Allergy status to other antibiotic agents; Z88.3 Allergy status to other anti-infective agents; Z88.0 Allergy status to penicillin; Z91.012 Allergy to eggs; Z01.810 Encounter for preprocedural cardiovascular examination; Z01.812 Encounter for preprocedural laboratory examination; Z79.899 Other long term (current) drug therapy; Z68.28 Body mass index [BMI] 28.0-28.9, adult
CPT/HCPCS: 36415; 45380; 85025; 93005; J7121; 45378